=== PATIENT | male | born 1990 | race Native Hawaiian/Other Pacific Islander ===

== ENCOUNTER 2020-05-03 09:50 | Outpatient (REF) | payer OTHER, SELFPAY ==
--- NOTE | 2020-05-03 10:04 | XR_ITS ---
EXAMINATION: XR CERVICAL SPINE CLINICAL INFORMATION: Cervicalgia COMPARISON: None TECHNIQUE: AP, lateral, odontoid, and bilateral oblique views of the cervical spine FINDINGS: The dens is intact. The lateral masses are normally positioned. Normal prevertebral soft tissues. Normal sagittal alignment. Vertebral body and disc heights are maintained. No fracture seen. There is anterior disc calcification at C6-7. Mild left osseous neuroforaminal narrowing at C4-5. Mild to moderate right osseous neuroforaminal narrowing at C3-4. XR/XR cervical spine 5V IMPRESSION: No acute osseous abnormality. Mild left osseous neuroforaminal narrowing at C4-5 and mild to moderate right osseous neural foraminal narrowing at C3-4.
== END 2020-05-03 09:51 | disposition home or self-care (01) ==
LOC: HO.XRAY 09:50
PROVIDERS: PCP Internal Medicine; Visit Provider Internal Medicine
DX: M54.2 Cervicalgia (principal)
CPT/HCPCS: 72050

== ENCOUNTER 2022-01-04 14:01 | Outpatient (REF) | payer OTHER, SELFPAY ==
--- NOTE | ~2022-01-04 | MM_ITS ---
EXAMINATION: MM DIAGNOSTIC DIGITAL BREAST TOMOSYNTHESIS, BILATERAL US DIAGNOSTIC ULTRASOUND BREAST, LEFT CLINICAL INFORMATION: 31-year-old male with intermittent pain peripheral upper outer left breast/chest. No prior breast imaging. No palpable mass, erythema, discharge. No prior breast imaging. COMPARISON: None (current study represents initial baseline exam). TECHNIQUE: Digital breast tomosynthesis is performed in both the craniocaudal and mediolateral oblique views along with computer-aided detection (CAD). Synthesized 2D images are generated from the tomosynthesis. Ultrasound left breast is targeted to both the retroareolar and periareolar region as well as the areas of symptoms periphery upper outer left breast/chest wall. Grayscale imaging and color Doppler are performed without and with harmonics. FINDINGS: There are scattered areas of fibroglandular density (ACR BI-RADS breast composition Category b). There is symmetric moderate retroareolar gynecomastia. No mass or architectural abnormality. No abnormal calcifications. No skin thickening or coarsening of the stromal markings. The axilla are unremarkable. Ultrasound demonstrates retroareolar gynecomastia. No cystic or solid mass. No abnormality in the area of symptoms periphery upper outer breast/chest. No visible chest wall abnormality. No skin thickening or edema tracking in soft tissue planes. Results are discussed with the patient at time of visit, with assistance of an flat spring assembler. The bilateral gynecomastia does not appear to be related to the area of patient symptoms. No abnormality in the area of concern on mammogram and ultrasound imaging. MM/MM tomosynthesis diagnostic BI IMPRESSION: -Bilateral symmetric moderate retroareolar gynecomastia which appears unrelated to area of symptoms. -No mammographic or ultrasound correlate in area of symptoms periphery upper outer breast/chest wall. ASSESSMENT: BI-RADS 2: Benign RECOMMENDATION: Patient should be managed based on the clinical impression.
== END 2022-01-04 14:02 | disposition home or self-care (01) ==
LOC: HO.MAMMO 14:01
PROVIDERS: PCP Internal Medicine; Visit Provider Internal Medicine
DX: N64.4 Mastodynia (principal); N63.21 Unspecified lump in the left breast, upper outer quadrant
CPT/HCPCS: 76642; 77062; 77066

== ENCOUNTER → 2022-03-21 08:26 | Outpatient (BNVA) | payer OTHER, SELFPAY | PROVIDERS: PCP Internal Medicine; Visit Provider Internal Medicine | DX: R07.2 Precordial pain (principal) | CPT/HCPCS: 93005 ==

== ENCOUNTER → 2022-04-17 08:29 | Outpatient (REF) | payer OTHER, SELFPAY ==
--- NOTE | 2022-04-17 08:41 | CA_ITS ---
Transthoracic Echocardiogram Patient (Last, First, Middle): Rayshawn Byrne, Gender: Male Date of : 1990 Age: 31 Procedure Date: 04/17/2022 Procedure Type: Transthoracic Echocardiogram Location: OP Height: 180.34 cm Weight: 92.99 kg BSA: 2.13 m2 Heart Rate: bpm BP: 105 / 62 mmHg Artificial Breeding Distributor: [email or web address] Referring MD: Ciro Calderon MD Foreign Collection Clerk: Dez Pinzon MD Symptoms: R07.2 - Precordial pain Study Quality: Adequate ECG Rhythm: Sinus Conclusions: - 1. Low normal LV systolic function with LVEF of 50-55% 2. Normal cardiac valvular Doppler 3. Normal RV systolic pressure 4. No gross pericardial effusion Findings Left Ventricle Normal left ventricular cavity size. There is normal left ventricular wall thickness. The left ventricular systolic function is low normal. The visually estimated ejection fraction is between 50-55%. Spectral Doppler is indicative of a normal filling pattern. Right Ventricle Normal right ventricular cavity size and systolic function. Atria Both atria are normal in size. Interatrial shunt cannot be excluded. Aortic Valve Normal aortic valve structure and function. There is no aortic valve stenosis. There is no aortic valve regurgitation. Mitral Valve Normal mitral valve structure and function. There is trace mitral valve regurgitation. There is no mitral valve stenosis. Pulmonic Valve The pulmonic valve was not well visualized. Tricuspid Valve The tricuspid valve was not well visualized. There is trace tricuspid valve regurgitation. The right ventricular systolic pressure is normal. The right ventricular systolic pressure is 13 mmHg. Normal right atrial pressure. There is no evidence of pulmonary hypertension. Great Vessels All visible segments of the aorta are normal in size. The pulmonary artery was not well visualized. Venous The inferior vena cava is normal in size and collapses greater than 50% with inspiration. Pericardium/Pleural There is no evidence of pericardial effusion. Prior Study Comparison No prior study available for comparison. Measurements 2D Linear Measurements IVSd: 1.16 0.6-0.9/0.6-1.0 cm LVIDd: 4.40 3.9-5.3/4.2-5.9 cm LVIDd Index: 2.07 2.4-3.2/2.2-3.1 cm/m2 LVIDs: 3.27 2.0-3.6 cm LVPWd: 1.09 0.7-1.1 cm LA Diam: 3.30 2.7-3.8/3.0-4.0 cm LAIDs Index: 1.55 1.5-2.3 cm/m2 LV Mass: 217.25 67-162/88-224 g LV Mass Index: 102.00 43-95/49-115 g/m2 LVOT Diam: 2.10 3.0+(-)1.3 cm 2D Systolic Function EF 4C: 50.00 >55% EF 2C: 50.50 >55% EF BiP: 51.30 >55% Mitral Valve MV Pk E: 1.03 MV PK A: 0.46 MV Decel Time: 240.00 E/A: 2.20 E'Lateral: 19.70 E'Medial: 10.80 E/E' Med: 9.50 E/E' Lat: 5.20 PHT: 68.00 MVA PHT: 3.24 Decel [place]: 4.31 Aortic Valve AoV Pk Kristian: 1.65 AoV Mn Kristian: 1.14 AoV VTI: 0.34 AoV Pk Grad: 11.00 Aov Mn Grad: 6.00 MARCO Cont.VTI: 2.37 LVOT LVOT Pk Kristian: 1.11 LVOT Mn Kristian: 0.73 LVOT VTI: 0.23 LVOT Pk Grad: 5.00 LVOT Mn Grad: 3.00 LVOT Diam: 2.10 LVOT Area: 3.46 Diastolic Function MV Pk E: 1.03 MV Pk A: 0.46 E/A: 2.20 E'Medial: 10.80 E/E' Med: 9.50 E' Laterial: 19.70 E/E' Lat: 5.20 Right Ventricle TAPSE (mm): 22.10 TVS' Kristian: 12.10 Tricuspid Valve TR Pk Kristian: 1.60 TR Pk Grad: 10.00 RA Press: 3.00 RVSP: 13.00 Great Vessels Aorta Sinus of Valsalva: 2.82 2.0-3.[address] [place]: 2.41 1.7-3.4 cm Ao Asc: 3.00 2.1-3.4 cm Ao Arch: 2.80 Updated in Other Vendor System with Status of Final Dez Pinzon MD electronically signed on 04/17/2022 5:47:16 PM with status of Final
== END ==
LOC: HO.CARD 08:29
PROVIDERS: PCP Internal Medicine; Visit Provider Internal Medicine
DX: R07.2 Precordial pain (principal)
CPT/HCPCS: 93306

== ENCOUNTER 2023-01-25 10:47 | Outpatient (REF) | payer OTHER, SELFPAY | END 2023-01-25 10:48 | disposition home or self-care (01) | LOC: HO.HHCL 10:47 | PROVIDERS: Visit Provider Internal Medicine | DX: R12 Heartburn (principal) | CPT/HCPCS: 87338 ==